=== PATIENT | male | born 1960 | race African-American/Black ===

== ENCOUNTER 2023-02-06 15:14 | Inpatient (IN) | payer OTHER ==
[2023-02-06 15:52] VITALS: BMI 33.9
[2023-02-06] MEDS ORDERED: ACETAMINOPHEN 325 MG TABLET (FP) PO PRN (18:44)
[2023-02-06] MEDS ORDERED: methaDONE HCL 10 MG TABLET (FOR DETOX USE ONLY) PO ONE (18:44)
[2023-02-06] MEDS ORDERED: IBUPROFEN 400 MG TABLET (FP) PO PRN (18:44)
[2023-02-06] MEDS ORDERED: guaiFENesin 600 MG TABLET.ER (FP) PO PRN (18:44)
[2023-02-06] MEDS ORDERED: MAGNESIUM HYDROX 2400MG/30ML ORAL SUSPENSION 30 ML CUP PO PRN (18:44)
[2023-02-06] MEDS ORDERED: DICYCLOMINE HCL 10 MG CAPSULE PO PRN (18:44)
[2023-02-06] MEDS ORDERED: NICOTINE 10 MG CARTRIDGE (INHALER) IH PRN (18:44)
[2023-02-06] MEDS ORDERED: POLYETHYLENE GLYCOL (HEALTHYLAX) 3350 17 GM PACKET PO PRN (18:44)
[2023-02-06] MEDS ORDERED: BENZONATATE 200 MG CAPSULE PO PRN (18:44)
[2023-02-06] MEDS ORDERED: LOPERAMIDE HCL 2 MG CAPSULE PO PRN (18:44)
[2023-02-06] MEDS ORDERED: NALOXONE HCL (KLOXXADO) 8 MG SPRAY NS PRN (18:44)
[2023-02-06] MEDS ORDERED: IBUPROFEN 600 MG TABLET (FP) PO PRN (18:44)
[2023-02-06] MEDS ORDERED: BENZOCAINE/MENTHOL (CHLORASEPTIC ) LOZENGE MM PRN (18:44)
[2023-02-06] MEDS ORDERED: BISMUTH SUBSALICYLATE 524 MG/30 ML PO PRN (18:44)
[2023-02-06] MEDS ORDERED: NICOTINE POLACRILEX 2 MG GUM BUC PRN (18:44)
[2023-02-06] MEDS ORDERED: cloNIDine HCL 0.1 MG TABLET PO PRN (18:44)
[2023-02-06] MEDS ORDERED: NALOXONE HCL 0.4 MG/ML VIAL IM PRN (18:44)
[2023-02-06] MEDS ORDERED: MAG HYDROX/AL HYDROX/SIMETH 30 ML UNIT-DOSE CUP PO PRN (18:44)
[2023-02-06] MEDS ORDERED: methaDONE HCL 10 MG TABLET (FOR DETOX USE ONLY) ONE (18:53)
[2023-02-06] MEDS ORDERED: MELATONIN 5 MG TABLETS PO SCH (22:00)
[2023-02-06] MEDS: THIAMINE HCL 100 MG TABLET (FP) PO SCH (22:13)
[2023-02-06] MEDS: METHOCARBAMOL 500 MG TABLET PO PRN (22:13)
[2023-02-07] MEDS: GEMFIBROZIL 600 MG TABLET (FP) PO SCH ×2 (06:32→17:43)
[2023-02-07] MEDS: INSULIN SLIDING SCALE (NOVOLOG) 1 VIAL SQ SCH ×3 (06:32→17:43)
[2023-02-07] MEDS ORDERED: PATIENT'S OWN MEDICATION (NON-FORMULARY) (Amlodipine/Valsartan/Hcthiazid [Amlod-Valsa-Hctz PO SCH (10:00)
[2023-02-07] MEDS ORDERED: PATIENT'S OWN MEDICATION (NON-FORMULARY) (Bempedoic Acid/Ezetimibe [Nexlizet 180-10 Mg Tab PO SCH ×2 (10:00)
[2023-02-07] MEDS: PRENATAL VITAMINS W/ FOLIC ACID TABLET (FP) PO SCH (10:02)
[2023-02-07] MEDS: METHOCARBAMOL 500 MG TABLET PO PRN (10:02)
[2023-02-07] MEDS: PANTOPRAZOLE 40 MG TABLET PO SCH (10:02)
[2023-02-07] MEDS: HYDROCHLOROTHIAZIDE 12.5 MG CAPSULE (FP) PO SCH (10:02)
[2023-02-07] MEDS: amLODIPine BESYLATE 5 MG TABLET (FP) PO SCH (10:02)
[2023-02-07 10:57] LABS: HEMATOCRIT 35.1 % (35.4-49); HEMOGLOBIN 11.2 GM/dL (11.7-16.9); MCH 27.2 pg (25.7-33.7); MEAN CELL VOLUME 84.8 fl (80-96); MEAN PLT VOLUME 8.3 fl (7.5-11.1); PLATELET COUNT 370 10^3/uL (134-434); POTASSIUM 4.1 mmol/L (3.5-5.1); RBC 4.14 M/mm3 (4.00-5.60); RDW 13.9 % (11.9-15.9); WHITE BLOOD COUNT 7.6 K/mm3 (4.0-10.0)
[2023-02-07 11:02] LABS: ALBUMIN 3.9 g/dl (3.4-5.0); CALCIUM 9.9 mg/dL (8.5-10.1)
[2023-02-07] MEDS: TERAZOSIN HCL 5 MG CAPSULE PO SCH (11:03)
[2023-02-07] MEDS: EZETIMIBE 10 MG TABLET (FP) PO SCH (11:03)
[2023-02-07] MEDS: VALSARTAN 160 MG TABLET PO SCH (11:03)
[2023-02-07 11:04] LABS: CREATININE 1.1 mg/dL (0.55-1.3)
[2023-02-07 11:06] LABS: TOT PROT 7.5 g/dl (6.4-8.2)
[2023-02-07] MEDS: DULoxetine HCL 60 MG CAPSULE.DR PO SCH (13:21)
[2023-02-07] MEDS: NICOTINE 14 MG/24 HOURS TOPICAL PATCH TD SCH (17:44)
[2023-02-07] MEDS ORDERED: INSULIN (NOVOLOG) ASPART 100 UNITS/ML 10ML VIAL ONE (17:47)
[2023-02-07] MEDS ORDERED: SUVOREXANT 10 MG TABLET PO PRN (22:00)
[2023-02-07] MEDS: THIAMINE HCL 100 MG TABLET (FP) PO SCH (22:16)
[2023-02-08] MEDS: GEMFIBROZIL 600 MG TABLET (FP) PO SCH (06:08)
[2023-02-08] MEDS: INSULIN SLIDING SCALE (NOVOLOG) 1 VIAL SQ SCH ×2 (06:08→11:44)
[2023-02-08] MEDS ORDERED: methaDONE HCL 10 MG TABLET (FOR DETOX USE ONLY) PO ONE (10:00)
[2023-02-08] MEDS: METHOCARBAMOL 500 MG TABLET PO PRN (10:04)
[2023-02-08] MEDS: HYDROCHLOROTHIAZIDE 12.5 MG CAPSULE (FP) PO SCH (10:05)
[2023-02-08] MEDS: DULoxetine HCL 60 MG CAPSULE.DR PO SCH (10:05)
[2023-02-08] MEDS: amLODIPine BESYLATE 5 MG TABLET (FP) PO SCH (10:05)
[2023-02-08] MEDS: PANTOPRAZOLE 40 MG TABLET PO SCH (10:05)
[2023-02-08] MEDS: TERAZOSIN HCL 5 MG CAPSULE PO SCH (10:06)
[2023-02-08] MEDS: PRENATAL VITAMINS W/ FOLIC ACID TABLET (FP) PO SCH (10:06)
[2023-02-08] MEDS: EZETIMIBE 10 MG TABLET (FP) PO SCH (10:06)
[2023-02-08] MEDS: VALSARTAN 160 MG TABLET PO SCH (10:06)
[2023-02-08] MEDS: NICOTINE 14 MG/24 HOURS TOPICAL PATCH TD SCH (10:11)
[2023-02-08 10:28] VITALS: BP 125/55; PULSE 66; RESP 18; TEMP 98.2
[2023-02-10] MEDS ORDERED: methaDONE HCL 10 MG TABLET (FOR DETOX USE ONLY) PO ONE (10:00)
== END 2023-02-08 11:40 | disposition left against medical advice (07) | DRG 894 ==
LOC: YASAS 15:14 → Y6N 19:54
PROVIDERS: ADMIT Allergy & Immunology; ATTEND Surgery
PROC: HZ2ZZZZ Detoxification Services for Substance Abuse Treatment (ICD-10-PCS; principal; 2023-02-06)
DX: F11.23 Opioid dependence with withdrawal (principal); F14.20 Cocaine dependence, uncomplicated; F33.0 Major depressive disorder, recurrent, mild; F19.282 Other psychoactive substance dependence with psychoactive substance-induced sleep disorder; F17.210 Nicotine dependence, cigarettes, uncomplicated; F19.24 Other psychoactive substance dependence with psychoactive substance-induced mood disorder; E78.5 Hyperlipidemia, unspecified; I10 Essential (primary) hypertension; K21.9 Gastro-esophageal reflux disease without esophagitis; E11.9 Type 2 diabetes mellitus without complications; Z79.84 Long term (current) use of oral hypoglycemic drugs; M54.50 Low back pain, unspecified; G89.29 Other chronic pain; Z88.8 Allergy status to other drugs, medicaments and biological substances
CPT/HCPCS: 36415; 71046-TC-FY; 80053; 82962; 85027; 86593; 86780; 87635; 93005; 93010